=== PATIENT | female | born 1940 | race African-American/Black ===

== ENCOUNTER 2017-01-13 08:51 | Inpatient (IN) ==
[2017-01-13] MEDS ORDERED: KETOROLAC 30 MG/1 ML VIAL IV STA (09:18)
[2017-01-13] MEDS ORDERED: KETOROLAC 30 MG/1 ML VIAL ONE (09:23)
--- NOTE | 2017-01-13 09:32 | Emergency Department Note ---
Arrival - Arrival Chief Complaint: Fall Stated Complaint: fall ED Nursing Triage Note: C/O FALL AT SOME POINT LAST NIGHT, PT FOUND ON FLOOR AND DOES NOT REMEMBER HOW SHE GOT THERE. PT STATES SHE HAS NO COMPLAINTS, BUT DOES HAVE AN ABRASION ON RIGHT CHEEK. PT IS AWAKE AND ALERT X3. PT DID NOT TAKE HER HOME MEDS Mode of Arrival: Stretcher Limitations: No Limitations Source: Patient, Family Time Seen by Provider: 01/13/17 09:18 - History of Present Illness HPI Narrative: This 76-year-old black female presents several hours post fall with conflicting stories between family members as to how she was found. One group states she was found facedown by the bed after apparently rolling out of the bed while another groups states she was found on the couch. Most notable is the fact that they state over the last week she has been less ambulatory due to some mild ataxia. This follows her last visit to the ER 1 week ago for pedal edema. The patient is alert and oriented 3 with complaints of facial pain as well as right shoulder, bilateral hip, and left wrist pain. Currently she appears in no acute distress. Onset (ago): hour(s) (Patient presents 5-8 hours post incident) Date of Last Menstrual Period: HYST Allergies/Adverse Reactions: Allergies Allergy/AdvReac Type Severity Reaction Status Date / Time No Known Allergies Allergy Unverified 12/29/16 13:56 Home Medications: Home Medications Medication Instructions Recorded Confirmed Type Aspirin EC Tab 81 mg PO QAM 01/13/17 01/13/17 History Bisoprol/Hydrochlorothiazide 1 each PO QAM 01/13/17 01/13/17 History [Bisoprolol-Hctz 10-6.25 mg Tab] Canagliflozin [Invokana] 300 mg PO QAM 01/13/17 01/13/17 History Cholecalciferol (Vitamin D3) 2,000 unit PO QAM 01/13/17 01/13/17 History [Vitamin D3] Ferrous Sulfate Tab [Feosol 325 mg PO QAM 01/13/17 01/13/17 History Original Tab] Furosemide Tab [Lasix Tab] 40 mg PO QAM 01/13/17 01/13/17 History Insulin Glargine [Lantus] 66 units SUBCUT BEDTIME 01/13/17 01/13/17 History Losartan Potassium [Losartan 100 mg PO QAM 01/13/17 01/13/17 History Potassium] Lovastatin 40 mg PO BEDTIME 01/13/17 01/13/17 History Potassium Chloride Cap/Tab [K Dur] 20 meq PO QAM 01/13/17 01/13/17 History cloNIDine HCl [Clonidine HCl] 0.2 mg PO BID 01/13/17 01/13/17 History glipiZIDE [Glipizide] 10 mg PO BID 01/13/17 01/13/17 History hydrALAZINE TAB [Apresoline Tab] 100 mg PO BID 01/13/17 01/13/17 History sitaGLIPtin [Januvia] 100 mg PO QAM 01/13/17 01/13/17 History Review of System - Review of System 12 point system: reviewed and no additional remarkable complaints except as stated - Review of System Constitutional: Present: as per HPI Musculoskeletal: Present: as per HPI Neurological: Present: as per HPI Medical,Surgical,& Family Hx - Medical History Cardio: History of: CHF, Hypertension Endocrine: History of: Diabetes Mellitus (IDDM) - Family History Family History: Reports;: Family Diabetes, Family Stroke - Social History Smoking Status: Never smoker Frequency of Alcohol Use: None Type of Drug Use: None Exam Physical Examination: GENERAL: Elderly black female in no acute distress. HEENT: Normocephalic. Abrasion right face with tender right orbits without ecchymosis but mild swelling. Moist mucous membranes. EOMI. PERRLA. ENT nontender nose NECK: Supple. No adenopathy. CARDIAC: Regular. No murmurs. Heart rate 83 CHEST: Clear to auscultation. No respiratory distress. O2 sat 100% ABDOMEN: Soft. Nontender. Active bowel sounds. EXTREMITIES: No trauma. Normal ROM with pain of the right shoulder, left wrist , and hips. No pedal edema. SKIN: No diaphoresis. No rash. NEURO: Alert. Oriented 3, motor, sensory, vibratory intact. No focal deficits. Vital Signs: Vital Signs Temperature 96.5 F L 01/13/17 09:04 Pulse Rate 67 01/13/17 10:54 Respiratory Rate 15 01/13/17 10:54 Blood Pressure 191/102 01/13/17 09:04 O2 Sat by Pulse Oximetry 96 01/13/17 10:54 Course - Reevaluation(s) Reevaluation #1: Discussed with family the need for hospitalization - Consultations Consultation #1: Discussed with hospitalist service who will admit for further evaluation treatment. Results - Labs CBC & BMP: 01/13/17 09:36 01/13/17 09:36 Labs: I reviewed the lab and noted the elevated white blood cell count, low potassium , elevated BUN and creatinine. - Impressions EKG: Sinus rhythm at 72 with left axis deviation normal NH interval with intraventricular conduction delay. 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 Cerebral atrophy and microvascular ischemia noted, no acute injury noted.), X-ray: image reviewed by me, report reviewed by me (Pelvis, left wrist, right shoulder: No evidence of acute fracture.) Disposition Clinical Impression: Acute renal insufficiency, Hypoglycemia, Hyperkalemia, Multiple contusions post fall Case discussed with: patient, patient's family Disposition: Still a Patient Condition: Guarded Time of Disposition: 11:00
[2017-01-13 09:52] LABS: Basophils % 0.2 % (0.0-0.8); Hematocrit 44.8 VOL% (35.7-47.0); Hemoglobin 13.8 GM/DL (12.0-16.0); Immature Granulocytes % 0.6 %; Immature Granulocytes Absolute 0.12 #; Lymphocytes # 1.9 10*3/uL (1.4-4.0); Mean Corpuscular HGB Conc 30.8 GM/DL (32-36); Mean Corpuscular Hemoglobin 27 PG (27-34); Mean Corpuscular Volume 86.3 FL (87-102); Mean Platelet Volume 9.9 FL (9.6-12.0); Monocytes # 0.9 10*3/uL (0.11-0.8); Neutrophils # 15.7 10*3/uL (1.4-7.4); Neutrophils % 84.2 % (38.7-73.9); Platelet Count 329 T/CUMM (130-400); Red Blood Count 5.19 MC/CUMM (3.8-5.5); Red Cell Distribution Width 14.3 % (9.3-17.3); White Blood Count 18.7 T/CUMM (4-12)
[2017-01-13 10:03] LABS: INR 1.1; Partial Thromboplastin Time 32.7 SECS (0-40)
--- NOTE | 2017-01-13 10:13 | XRay Report ---
Exam: XR wrist 3V LT, XR shoulder 2V RT, XR pelvis AP 1 view, XR chest 1V portable Indication: Trauma, chest pain, pelvic pain, right shoulder and left wrist pain Comparison study: None Findings: Cardiac silhouette is mildly enlarged. Mediastinal contours are within normal limits. Suggestion of underlying interstitial prominence may represent scarring changes. There is no focal consolidation, pneumothorax or pleural effusion identified. Right shoulder joint is intact. There is no evidence of glenohumeral joint dislocation. There is no acute fracture identified. Moderate degenerative changes of acromioclavicular joint are noted. Osseous pelvis is intact. There is no evidence of acute fracture or hip dislocation. Distal radius and ulna appear within normal limits. There is no evidence of fracture or dislocation. Mild soft tissue swelling is suggested dorsally. Impression: No acute cardiopulmonary process. No acute fracture within the pelvis, right shoulder or left wrist PROCEDURE INTERPRETED AT [facility] DEPARTMENT OF RADIOLOGY Final Report Signed by: Chaparro Valle
--- NOTE | 2017-01-13 10:22 | CT Report ---
CT head/brain wo con INDICATION: Trauma, head injury Headache The total DLP is 1525 mGy*cm. COMPARISON: Noncontrast CT head dated 09/30/12 MRI brain 11/05/2012 Technique: Serial axial tomographic images of the brain were obtained without the use of intravenous contrast. Dose reduction: This CT exam was performed using one or more of the following dose reduction techniques: Automated exposure control, automated adjustment of the mA and/or KV according to patient size, or use of iterative reconstruction technique. Findings: Remote medial and lateral right frontal lobe infarcts are noted with encephalomalacic changes. Postsurgical changes are noted with findings most compatible with interval resection of the sellar soft tissue lesion seen previously. No definite residual soft tissue mass is evident within the sella or suprasellar cistern on this noncontrast study. Moderate generalized atrophy is noted with mild prominence of the sulci and cortical volume loss. Periventricular white matter hypodensity changes are noted bilaterally which do not demonstrate mass effect and are nonspecific but favored to represent sequela of chronic microvascular ischemia. There is no evidence of vascular territory infarct or acute intracranial hemorrhage. The giles-white matter differentiation is generally maintained. There is no hydrocephalus. The basilar cisterns are patent. The visualized paranasal sinuses, mastoid air cells and middle ear cavities are predominantly clear. The included orbits and their contents appear within normal limits. The visualized osseous structures and overlying soft tissues of the skull and face demonstrate no acute abnormality. IMPRESSION: No acute intracranial hemorrhage or infarction. Interval resection of the mass within the sella turcica with expected postsurgical changes. Evaluation for residual/recurrent disease is severely limited given noncontrast protocol. Essentially stable findings of chronic atrophy and sequela of chronic microvascular ischemia as well as remote right frontal lobe infarcts. PROCEDURE INTERPRETED AT [facility] DEPARTMENT OF RADIOLOGY Final Report Signed by: Chaparro Valle
[2017-01-13 10:25] LABS: Alanine Aminotransferase 36 U/L (13-56); Albumin 3.7 G/DL (3.4-5.0); Alkaline Phosphatase 79 U/L (45-117); Aspartate Amino Transferase 44 U/L (0-37); Bilirubin,Total < 0.39 MG/DL (0.2-1.0); Blood Urea Nitrogen 110 MG/DL (7-18); CKMB % 3.5 %; Calcium 10.4 MG/DL (8.5-10.1); Osmolality,Calculated 304.8 MOS/KG (273-304); Sodium 137 MMOL/L (136-145); Troponin I Only 0.029 NG/ML (0.00-0.045)
--- NOTE | 2017-01-13 10:28 | CT Report ---
Indication: Fall, facial injury/pain Comparison: None available Technique: Multiple axial tomographic thin slice images were obtained of the facial bones without the use of IV contrast. Coronal and sagittal reformations were obtained. Total DLP: 525.7 Dose reduction: This CT exam was performed using one or more of the following dose reduction techniques: Automated exposure control, automated adjustment of the mA and/or KV according to patient size, or use of iterative reconstruction technique. Findings: The orbits and orbital contents are unremarkable. The visualized paranasal sinuses, mastoid air cells and middle ear cavities are clear. The inner ear structures appear within normal limits. The visualized brain parenchyma appears within normal limits. There is no acute facial fracture. Soft tissue swelling overlying the right periorbital region and right lateral forehead is noted. IMPRESSION: No CT evidence of acute osseous facial injury. Minimal right lateral periorbital/facial soft tissue swelling. PROCEDURE INTERPRETED AT [facility] DEPARTMENT OF RADIOLOGY Final Report Signed by: Chaparro Valle
[2017-01-13 10:31] LABS: Glucose 39 MG/DL (74-106); Potassium 6.8 MMOL/L (3.5-5.1)
[2017-01-13] MEDS ORDERED: DEXTROSE 50% 25 GM/50 ML VIAL IV ONE (10:32)
[2017-01-13] MEDS ORDERED: CALCIUM CHLORIDE 1,000 MG/10 ML SYRINGE IV STA (10:37)
[2017-01-13] MEDS ORDERED: ALBUTEROL NEB SOLN 5 MG/ML 20 ML/BOTTLE CONT NEB STA (10:37)
[2017-01-13] MEDS ORDERED: SODIUM CHLORIDE 0.9% 1,000 ML IV STA (10:37)
[2017-01-13] MEDS ORDERED: DEXTROSE 50% 25 GM/50 ML VIAL IV STA (10:37)
[2017-01-13] MEDS ORDERED: CALCIUM CHLORIDE 1,000 MG/10 ML SYRINGE IV ONE (10:50)
[2017-01-13 11:25] LABS: Apearance,Urine Slightly Hazy (Clear); Bacteria,Urine Occasional /HPF (Few); Bilirubin,Urine Negative (Negative); Blood, Urine Negative (Negative); Glucose,Urine (UA) 50 mg/dL (Negative); Hyaline Casts,Urine 4 /LPF (0-3); Ketones,Urine Negative (Negative); Mucus,Urine Occasional /LPF (Occasional); Nitrite,Urine Negative (Negative); Protein,Urine Negative; RBC,Urine 2 /HPF (0-4); Urine Color Yellow (Yellow); Urine Specific Gravity 1.013 (1.001-1.035); Urine Urobilinogen < 2.0 EU/DL (0.2-1.0)
--- NOTE | 2017-01-13 11:37 | EKG Report ---
Stationary ECG Study [facility] Test Date: 01/13/2017 10:59:17 AM Pat Name: NICOLE MCDONOUGH Department: Room: Gender: F Personal Lines Advisor: ERIKA : 1940 Requested by: Trae Pringle Order Number: [id number] Reading MD: BRENDA LOPEZ Intervals [place] Rate: 72 P: 62 AL: 190 QRS: -32 QRSD: 112 T: 74 QT: 385 QTc: 410 Interpretive Statements SINUS RHYTHM MARKED LEFT AXIS DEVIATION PATTERN CONSISTENT WITH PULMONARY DISEASE MODERATE INTRAVENTRICULAR CONDUCTION DELAY NONSPECIFIC T-WAVE ABNORMALITY Electronically Signed On 01-14-17 08:56:38 CDT by BRENDA LOPEZ [email or web address]
[2017-01-13 12:41] LABS: Barbiturates Screen,Urine Negative (Negative); Benzodiazepines Screen,Urine Negative (Negative); Cannabinoid Screen,Urine Negative (Negative); Opiate Screen,Urine Negative (Negative); Phencyclidine Screen,Urine Negative (Negative)
[2017-01-13] MEDS ORDERED: DEXTROSE 50% 25 GM/50 ML VIAL IV PRN (12:53)
[2017-01-13] MEDS ORDERED: GLUCAGON 1 MG VIAL IM PRN ×2 (12:53)
[2017-01-13] MEDS ORDERED: ZALEPLON 5 MG CAPSULE PO PRN (12:59)
[2017-01-13] MEDS ORDERED: ACETAMINOPHEN 325 MG TABLET PO PRN (12:59)
[2017-01-13] MEDS ORDERED: DOCUSATE SODIUM 100 MG CAPSULE PO PRN (12:59)
[2017-01-13] MEDS ORDERED: MORPHINE 2 MG/1 ML SYRINGE IV PRN (12:59)
[2017-01-13] MEDS ORDERED: ONDANSETRON 4 MG/2 ML VIAL IV PRN (12:59)
[2017-01-13] MEDS ORDERED: LACTULOSE 20 GM/30 ML UDCUP PO PRN (12:59)
--- NOTE | 2017-01-13 13:05 | Hospitalist History & Physical ---
Assessment and Plan (1) Acute kidney failure Status: Acute Assessment and plan: BUN 110 Cr 5.00. This has doubled since her last visit 2 weeks ago. We have started gentle IV hydration with NS. Avoid all nephrotoxic agents. Obtain a new renal US bilaterally. Consulted Dr. Moses Foote, nephrology. Current Visit: Yes (2) Hypertension Status: Acute Assessment and plan: BP 106-191/102-116. Continue Hydralazine. Add Metoprolol. Current Visit: Yes (3) Diabetes mellitus Status: Acute Assessment and plan: Holding all home meds. Initiating SSI with medium dose Lispro. Will add basal if necessary. Patient was hypoglycemic on admission. Current Visit: Yes (4) Hyperkalemia Status: Acute Assessment and plan: K 6.8. Patient was given IV calcium chloride and kayexalate in the ED. Repeat BMP. Current Visit: Yes (5) Hypoglycemia Status: Acute Assessment and plan: Blood glucose on admission 39. Patient given glucagon and D50 injection in ED. Repeat Accu-chek reads glucose of 130. Current Visit: Yes History of Present Illness Chief complaint: LISBETH/hyperkalemia/hypoglycemia History of present illness: Ms. Rendon is a 76 year old female with a past medical history significant for hypertension and diabetes mellitus presents to the ED s/p fall out bed with onset at approximately 7am. The patient was found by a family friend who assists with her daily medications this morning around 8am. The patient states she "doesn't know what happened, she just fell". On arrival at the ED, the patient was found to be hypoglycemic with serum glucose 39, hyperkalemic with K 6.8 and suffering from acute kidney injury with BUN 110 and Cr 5.00. The patient was noticeably distressed and shivering under several layers of clothes and blankets. The patient does not voice any knowledge of renal failure, however, hospital records from 12/29/2016 BUN and Cr were previously 64 and 2.5, respectively. Patient only complains of headache and being extremely cold. The patient was given Kayexelate, Calcium Chloride, Glucagon, and D50 in the ED. She has been admitted to the hospitalist service and transferred to the ICU for further evaluation and treatment. The patient is a full code. Case has been discussed with Dr. Gallo, admitting physician. Home Medications Medication Instructions Recorded Confirmed Type Aspirin EC Tab 81 mg PO QAM 01/13/17 01/13/17 History Bisoprol/Hydrochlorothiazide 1 each PO QAM 01/13/17 01/13/17 History [Bisoprolol-Hctz 10-6.25 mg Tab] Canagliflozin [Invokana] 300 mg PO QAM 01/13/17 01/13/17 History Cholecalciferol (Vitamin D3) 2,000 unit PO QAM 01/13/17 01/13/17 History [Vitamin D3] Ferrous Sulfate Tab [Feosol 325 mg PO QAM 01/13/17 01/13/17 History Original Tab] Furosemide Tab [Lasix Tab] 40 mg PO QAM 01/13/17 01/13/17 History Insulin Glargine [Lantus] 66 units SUBCUT BEDTIME 01/13/17 01/13/17 History Losartan Potassium [Losartan 100 mg PO QAM 01/13/17 01/13/17 History Potassium] Lovastatin 40 mg PO BEDTIME 01/13/17 01/13/17 History Potassium Chloride Cap/Tab [K Dur] 20 meq PO QAM 01/13/17 01/13/17 History cloNIDine HCl [Clonidine HCl] 0.2 mg PO BID 01/13/17 01/13/17 History glipiZIDE [Glipizide] 10 mg PO BID 01/13/17 01/13/17 History hydrALAZINE TAB [Apresoline Tab] 100 mg PO BID 01/13/17 01/13/17 History sitaGLIPtin [Januvia] 100 mg PO QAM 01/13/17 01/13/17 History Allergies Allergy/AdvReac Type Severity Reaction Status Date / Time No Known Allergies Allergy Unverified 12/29/16 13:56 Medical,Surgical,& Family Hx - Medical History Cardio: History of: CHF, Hypertension Endocrine: History of: Diabetes Mellitus (IDDM) - Family History Family History: Reports;: Family Diabetes, Family Stroke - Social History Smoking Status: Never smoker Frequency of Alcohol Use: None Type of Drug Use: None Marital Status: Single Lives With:: Alone Functional capacity: independent ambulation - Constitutional Constitutional: Present: chills, fatigue, headache(s), weakness. Absent: night sweats - EENT Eyes: Absent: blurry vision, loss of vision Ears: Absent: decreased hearing, ear pain - Cardiovascular Cardiovascular: Present: dyspnea. Absent: chest pain at rest, chest pain with activity, edema, lightheadedness - Respiratory Respiratory: Absent: cough, hemoptysis, wheezing - Gastrointestinal Gastrointestinal: Absent: abdominal pain, constipation, nausea, vomiting - Genitourinary Genitourinary: Absent: difficulty urinating, dysuria - Musculoskeletal Musculoskeletal: Absent: arthralgias, back pain - Neurological Neurological: Absent: confusion, dizziness, syncope - Psychiatric Psychiatric: Absent: anxiety, depression - Endocrine Endocrine: Present: cold intolerance, fatigue, heat intolerance - Hematologic/Lymphatic Hematologic/Lymphatic: Present: easy bleeding. Absent: easy bruising Exam - Constitutional Vitals: Period Temp Pulse Resp BP Sys/Cullen Pulse Ox Last 24 Hr 97.8 F 67-99 15-18 160/116 96-98 Exam: General appearance: morbidly obese, moderate distress, shivering - Head Head exam: Present: normocephalic, abrasions to right upper eyelid and cheek - Eye Eye exam: Present: EOMI. Absent: conjunctival injection, nystagmus Pupils: Present: ALFREDA, normal accommodation - ENT ENT exam: Present: normal exam, normal external ear exam - Neck Neck exam: Present: normal inspection. Absent: lymphadenopathy, tenderness, thyromegaly - Respiratory Respiratory exam: Present: clear to auscultation bilaterally. Absent: rales, rhonchi, wheezes - Cardiovascular Cardiovascular exam: Present: regular rate and rhythm. Absent: carotid bruit, gallop, rubs - GI/Abdominal GI/Abdominal exam: Present: normal bowel sounds. Absent: ascites, distended, mass - Extremities Exam Extremities exam: Present: normal inspection, normal capillary refill. Absent: edema - Back Exam Back exam: Absent: CVA tenderness (L), CVA tenderness (R) - Neurological Exam Neurological exam: Present: alert, oriented X3 - Psychiatric Psychiatric exam: Present: normal affect, normal mood - Skin Skin exam: Present: normal color, warm, dry Results - Labs CBC & BMP: 01/13/17 09:36 01/13/17 09:36
[2017-01-13 13:35] LABS: Risk Ratio 3.63; Thyroid Stimulating Hormone 1.5 uIU/ml (0.358-3.74); VLDL CHOLESTEROL 29.2 MG/DL
[2017-01-13] MEDS: SODIUM CHLORIDE 0.9% 1,000 ML IV SCH (13:53)
[2017-01-13] MEDS ORDERED: SODIUM POLYSTYRENE SULFATE 15 GM/60 ML BOTTLE PO ONE (13:57)
[2017-01-13] MEDS ORDERED: hydrALAZINE 20 MG/1 ML VIAL IV PRN (14:00)
[2017-01-13] MEDS: FERROUS SULFATE 325 MG TABLET PO SCH ×2 (16:00→20:51)
--- NOTE | 2017-01-13 17:40 | Ultrasound Report ---
US renal Bilateral Indication: Acute renal failure. Comparison: Prior renal ultrasound dated 05/24/2016. Technique: Multiple longitudinal and transverse real-time sonographic images of the kidneys were obtained. Findings: The right kidney measures 8.9 x 4.4 x 2.4 cm, and the left kidney measures 8.0 x 4.9 x 3.6 cm. There is no evidence of nephrolithiasis or abnormal perinephric fluid collections. Renal cortical echogenicity is increased and thickness are within normal limits. There is no hydronephrosis. Within the right kidney, there is an anechoic lesion measuring up to 2.5 cm, most compatible with a simple cyst. Punctate anechoic lesion within the left kidney measures 0.9 cm maximum dimension and is also most compatible with a simple cyst. There is no evidence of surrounding ascites. Ultrasound images were captured and stored. IMPRESSION: Findings suggestive of chronic medical renal disease. Small bilateral renal cysts are noted. No hydronephrosis. PROCEDURE INTERPRETED AT [facility] DEPARTMENT OF RADIOLOGY Final Report Signed by: Chaparro Valle
[2017-01-13] MEDS: INSULIN LISPRO 100 UNIT/ML SUBCUT SCH ×2 (18:57→20:39)
[2017-01-13 19:55] LABS: Apearance,Urine Slightly Hazy (Clear); Bilirubin,Urine Negative (Negative); Blood, Urine Negative (Negative); Glucose,Urine (UA) 150 mg/dL (Negative); Hyaline Casts,Urine 8 /LPF (0-3); Ketones,Urine Negative (Negative); Mucus,Urine Occasional /LPF (Occasional); Nitrite,Urine Negative (Negative); Protein,Urine Negative; RBC,Urine 4 /HPF (0-4); Urine Color Yellow (Yellow); Urine Specific Gravity 1.014 (1.001-1.035); Urine Urobilinogen < 2.0 EU/DL (0.2-1.0); WBC,Urine 3 /HPF (0-6)
[2017-01-13] MEDS: METOPROLOL TARTRATE 25 MG TABLET PO SCH (20:51)
[2017-01-13] MEDS: ATORVASTATIN 40 MG TABLET PO SCH (20:51)
[2017-01-14] MEDS: SODIUM CHLORIDE 0.9% 1,000 ML IV SCH ×2 (00:10→11:39)
[2017-01-14] MEDS ORDERED: ALUMINUM/MAGNES/SIMETH MAX STR 30 ML UDCUP PO PRN (00:33)
[2017-01-14 04:56] LABS: Basophils % 0.2 % (0.0-0.8); Eosinophils # 0.1 10*3/uL (0.0-0.87); Eosinophils % 0.6 % (0.00-10.9); Hemoglobin 10.2 GM/DL (12.0-16.0); Immature Granulocytes % 0.4 %; Immature Granulocytes Absolute 0.03 #; Lymphocytes # 2.5 10*3/uL (1.4-4.0); Lymphocytes % 29.6 % (21.3-54.2); Mean Corpuscular HGB Conc 30.9 GM/DL (32-36); Mean Corpuscular Hemoglobin 27 PG (27-34); Mean Corpuscular Volume 85.7 FL (87-102); Mean Platelet Volume 10.5 FL (9.6-12.0); Monocytes # 0.9 10*3/uL (0.11-0.8); Neutrophils % 59.2 % (38.7-73.9); Platelet Count 240 T/CUMM (130-400); Red Blood Count 3.85 MC/CUMM (3.8-5.5); Red Cell Distribution Width 14.6 % (9.3-17.3); White Blood Count 8.5 T/CUMM (4-12)
[2017-01-14 05:24] LABS: Calcium 9.1 MG/DL (8.5-10.1)
[2017-01-14 05:32] LABS: Potassium 6.3 MMOL/L (3.5-5.1)
[2017-01-14] MEDS ORDERED: SODIUM POLYSTYRENE SULFATE 15 GM/60 ML BOTTLE PO ONE (06:08)
[2017-01-14] MEDS: INSULIN LISPRO 100 UNIT/ML SUBCUT SCH ×4 (09:19→20:40)
[2017-01-14] MEDS ORDERED: DEXTROSE 5% NACL 0.9% 1,000 ML IV SCH (09:30)
--- NOTE | 2017-01-14 10:36 | Hospitalist Progress Note ---
Assessment and Plan (1) Acute on chronic kidney failure Status: Acute Assessment and plan: 1)LISBETH on CKD- her last creatinine was 2.5 2 weeks ago. She is receiving IVF hydration and her losartan was stopped. Renal to see today , US done showed medical renal disease. UOP increasing, creatinine coming down. 2)hyperkalemia- due ot the LISBETH and lisinopril- coming down with kayexalate- dose repeated this morning and noon recheck scheduled. No EKG changes. 3)HTN- not high at this time- home meds except losartan and diuretics continued. 4)hypoglycemia- she is on glipizide as an outpatient and it will likely be 48 hours before it is cleared given her current renal function. Also holding her other usual insulin. begin D5 NS and change SSI to begin at 250. Adjust as her glucose rises. 5)DM- hgba1c pending. Current Visit: Yes (2) Fall Status: Acute Current Visit: Yes (3) Hypertension Status: Acute Current Visit: Yes (4) Diabetes mellitus Status: Acute Current Visit: Yes (5) Hyperkalemia Status: Acute Current Visit: Yes (6) Hypoglycemia Status: Acute Current Visit: Yes Hospitalist: Subjective Interval history: Mrs Rendon was stable overnight and has her potassium responded to the kayexalate. She has no complaints. She fell at home yesterday and has scratches on her face but no other injuries, and she is interested in PT and OT and possible swing bed placement. Exam - Constitutional Vitals: Period Temp Pulse Resp BP Sys/Cullen Pulse Ox Last 24 Hr 97.2 F-98.9 F 67-99 15-24 80-173/39-151 95-100 General appearance: no acute distress, morbidly obese - Head Head exam: Present: normocephalic. Absent: atraumatic (scratches on her right cheek) - Eye Eye exam: Present: EOMI Pupils: Present: ALFREDA - ENT ENT exam: Present: normal external ear exam - Respiratory Respiratory exam: Present: clear to auscultation bilaterally - Cardiovascular Cardiovascular exam: Present: regular rate and rhythm - GI/Abdominal GI/Abdominal exam: Present: normal bowel sounds, soft. Absent: tenderness - Extremities Exam Extremities exam: Absent: edema - Neurological Exam Neurological exam: Present: alert, oriented X3 - Skin Skin exam: Present: warm, dry Results - Labs CBC & BMP: 01/14/17 04:10 01/14/17 04:10 Lab Results: I have reviewed the past 24 hour labs
[2017-01-14] MEDS: FERROUS SULFATE 325 MG TABLET PO SCH ×2 (11:38→11:51)
[2017-01-14] MEDS: CHOLECALCIFEROL 1,000 UNIT TABLET PO SCH (11:51)
[2017-01-14] MEDS: PANTOPRAZOLE 40 MG TABLET PO SCH (11:51)
[2017-01-14] MEDS: ASPIRIN EC 81 MG TABLET PO SCH (11:51)
[2017-01-14] MEDS: METOPROLOL TARTRATE 25 MG TABLET PO SCH ×2 (11:52→20:40)
--- NOTE | 2017-01-14 11:59 | Nephrology Consult Note ---
History of Present Illness Chief complaint: Acute on Chronic Renal Failure History of present illness: Ms. Rendon is a 76 year old female whom we are asked to see with acute superimposed on chronic renal impairment. She began lisinopril recently and had a creatinine of 2-1/2 at that time. She presented with a creatinine of 5 and a potassium of 6.8. She also has a metabolic acidosis. She came to the emergency room because of weakness and falling. She gives a history of having a previous strokes but no heart attack. Her gait is not especially stable according to family members but was particularly worse on Saturday. On exam she is in no distress able to give a good history she is lying flat and is having no shortness of breath. She has a Rhodes catheter in place and is now making adequate amounts of urine. Her serum creatinine is fallen below 5 today and her potassium is falling since yesterday. She has received Kayexalate since being here. Impression chronic renal impairment #2 acute renal failure superimposed on chronic renal failure likely due to JUANY inhibitor inhibitor. Hyperkalemia likely due to the JUANY inhibitor. Our suggestions I would add sodium bicarb to her IV fluid is not available so will use sodium acetate. #2 she should continue to improve and return her renal function to baseline. Home Medications Medication Instructions Recorded Confirmed Type Aspirin EC Tab 81 mg PO QAM 01/13/17 01/13/17 History Bisoprol/Hydrochlorothiazide 1 each PO QAM 01/13/17 01/13/17 History [Bisoprolol-Hctz 10-6.25 mg Tab] Canagliflozin [Invokana] 300 mg PO QAM 01/13/17 01/13/17 History Cholecalciferol (Vitamin D3) 2,000 unit PO QAM 01/13/17 01/13/17 History [Vitamin D3] Ferrous Sulfate Tab [Feosol 325 mg PO QAM 01/13/17 01/13/17 History Original Tab] Furosemide Tab [Lasix Tab] 40 mg PO QAM 01/13/17 01/13/17 History Insulin Glargine [Lantus] 66 units SUBCUT BEDTIME 01/13/17 01/13/17 History Losartan Potassium [Losartan 100 mg PO QAM 01/13/17 01/13/17 History Potassium] Lovastatin 40 mg PO BEDTIME 01/13/17 01/13/17 History Potassium Chloride Cap/Tab [K Dur] 20 meq PO QAM 01/13/17 01/13/17 History cloNIDine HCl [Clonidine HCl] 0.2 mg PO BID 01/13/17 01/13/17 History glipiZIDE [Glipizide] 10 mg PO BID 01/13/17 01/13/17 History hydrALAZINE TAB [Apresoline Tab] 100 mg PO BID 01/13/17 01/13/17 History sitaGLIPtin [Januvia] 100 mg PO QAM 01/13/17 01/13/17 History Allergies Allergy/AdvReac Type Severity Reaction Status Date / Time No Known Allergies Allergy Unverified 12/29/16 13:56 Medical,Surgical,& Family Hx - Medical History Cardio: History of: CHF, Hypertension Endocrine: History of: Diabetes Mellitus (IDDM) - Family History Family History: Reports;: Family Diabetes, Family Stroke - Social History Smoking Status: Never smoker Frequency of Alcohol Use: None Type of Drug Use: None Review of Systems 12 point system: reviewed and no additional remarkable complaints except as stated Exam - Vital Signs Vital signs: Period Temp Pulse Resp BP Sys/Cullen Pulse Ox Last 24 Hr 97.2 F-98.9 F 68-99 16-24 80-173/39-151 95-100 - General Appearance General appearance: well-developed, well-nourished, appears started age Neck: no JVD, no thyromegaly, no carotid bruit, supple Respiratory: no kyphosis, no scoliosis Cardiology: no murmurs, no rub, no gallops, no edema, regular rate, regular rhythm, normal S1, normal S2 Gastrointestinal: normoactive bowel sounds, no tenderness, no guarding, no organomegaly Integumentary: no rash, warm and dry Neurologic: no focal deficit, no asterixis, alert and oriented x3, reflexes 2+ and symmetric, gait normal, strength 5/5 Musculoskeletal: no deformities, no erythema, no cyanosis, no clubbing Psychiatric: mood/affect appropriate, cooperative Results - Labs CBC & BMP: 01/14/17 04:10 01/14/17 04:10 Assessment and Plan - Time spent with patient Time spent with patient: Greater than 30 minutes (1) Acute on chronic kidney failure Status: Acute Assessment and plan: Likely due to JUANY inhibitor Current Visit: Yes (2) Hyperkalemia Status: Acute Assessment and plan: due to JUANY inhibitor Current Visit: Yes (3) Diabetes mellitus Status: Acute Current Visit: Yes (4) Hypertension Status: Acute Assessment and plan: Hold JUANY inhibitor Current Visit: Yes
[2017-01-14] MEDS: SODIUM ACETATE 50 MEQ in DEXTROSE 5% NACL 0.45% 1,000 ML IV SCH (14:28)
[2017-01-14] MEDS: ATORVASTATIN 40 MG TABLET PO SCH (20:40)
[2017-01-14] MEDS: cloNIDine 0.1 MG TABLET PO SCH (20:40)
[2017-01-15] MEDS: SODIUM ACETATE 50 MEQ in DEXTROSE 5% NACL 0.45% 1,000 ML IV SCH ×2 (00:26→10:45)
[2017-01-15 05:13] LABS: Basophils % 0.3 % (0.0-0.8); Eosinophils # 0.3 10*3/uL (0.0-0.87); Eosinophils % 3.7 % (0.00-10.9); Hematocrit 29.3 VOL% (35.7-47.0); Immature Granulocytes % 0.5 %; Immature Granulocytes Absolute 0.04 #; Lymphocytes # 2.4 10*3/uL (1.4-4.0); Lymphocytes % 32.9 % (21.3-54.2); Mean Corpuscular HGB Conc 30.7 GM/DL (32-36); Mean Corpuscular Hemoglobin 27 PG (27-34); Mean Corpuscular Volume 86.7 FL (87-102); Mean Platelet Volume 10.2 FL (9.6-12.0); Monocytes # 0.6 10*3/uL (0.11-0.8); Monocytes % 8.7 % (1.7-12.7); Neutrophils % 53.9 % (38.7-73.9); Platelet Count 178 T/CUMM (130-400); Red Blood Count 3.38 MC/CUMM (3.8-5.5); Red Cell Distribution Width 14.6 % (9.3-17.3); White Blood Count 7.3 T/CUMM (4-12)
[2017-01-15 05:43] LABS: Calcium 8.6 MG/DL (8.5-10.1); Potassium 5.3 MMOL/L (3.5-5.1)
--- NOTE | 2017-01-15 08:41 | Nephrology Progress Note ---
Nephrology - PN: Subj Interval history: Ms. Rendon is seen in follow-up of her acute renal failure on chronic renal failure and hyperkalemia. She is improved her potassium is down to 5.3. Creatinine down to 3.1. She is receiving sodium acetate in her IV and her bicarb is risen to 19. We will continue that for now but she should be able to stop it tomorrow. She is currently off JUANY and ARBs and I think we should stay off of those. She has no edema and is not short of breath. Exam (PN)-Nephrology - Vital Signs Vital signs: Period Temp Pulse Resp BP Sys/Cullen Pulse Ox Last 24 Hr 97.4 F-99.3 F 68-88 16-27 100-144/46-73 93-100 - Lab 01/15/17 04:23 01/15/17 04:23 Most recent lab results Calcium 8.6 MG/DL (8.5-10.1) 01/15/17 04:23 Assessment and Plan (1) Acute on chronic kidney failure Status: Acute Assessment and plan: Likely due to JUANY inhibitor Current Visit: Yes (2) Hyperkalemia Status: Acute Assessment and plan: due to JUANY inhibitor Current Visit: Yes (3) Diabetes mellitus Status: Acute Current Visit: Yes (4) Hypertension Status: Acute Assessment and plan: Hold JUANY inhibitor Current Visit: Yes
[2017-01-15] MEDS: PANTOPRAZOLE 40 MG TABLET PO SCH (09:06)
[2017-01-15] MEDS: METOPROLOL TARTRATE 25 MG TABLET PO SCH ×2 (09:06→21:53)
[2017-01-15] MEDS: cloNIDine 0.1 MG TABLET PO SCH ×2 (09:07→21:52)
[2017-01-15] MEDS: INSULIN LISPRO 100 UNIT/ML SUBCUT SCH ×4 (09:07→21:55)
[2017-01-15] MEDS: FERROUS SULFATE 325 MG TABLET PO SCH (09:07)
[2017-01-15] MEDS: CHOLECALCIFEROL 1,000 UNIT TABLET PO SCH (09:07)
[2017-01-15] MEDS: ASPIRIN EC 81 MG TABLET PO SCH (09:07)
--- NOTE | 2017-01-15 09:17 | Hospitalist Progress Note ---
Assessment and Plan (1) Acute on chronic kidney failure Status: Acute Assessment and plan: 1)LISBETH on CKD- her last creatinine was 2.5 2 weeks ago. Today creatinine down to 3.1. continue IVF hydration and her losartan was stopped. US done showed medical renal disease. 2)hyperkalemia- due to the LISBETH and losartan- came down with kayexalate 3)HTN- not high at this time- home meds changed: losartan hydralazine and diuretics held, clonidine and metoprolol dose halved. 4)hypoglycemia- she is on glipizide as an outpatient and it will likely be 48 hours before it is cleared given her current renal function. Also holding her other usual insulin. continue D5 NS until glucose over 250 then stop the D5. SSI changed to begin at 250 for now. Adjust as her glucose rises. 5)DM- hgba1c 8.3 Current Visit: Yes (2) Fall Status: Acute Current Visit: Yes (3) Hypertension Status: Acute Current Visit: Yes (4) Diabetes mellitus Status: Acute Current Visit: Yes (5) Hyperkalemia Status: Acute Current Visit: Yes (6) Hypoglycemia Status: Acute Current Visit: Yes Hospitalist: Subjective Interval history: Mrs Rendon is feeling good this morning. She is not short of breath and has a good appetite. She did not have any more low blood sugars overnight- she is on D5. Exam - Constitutional Vitals: Period Temp Pulse Resp BP Sys/Cullen Pulse Ox Last 24 Hr 97.4 F-99.3 F 68-88 16-27 100-144/46-73 93-100 General appearance: no acute distress, over weight - Head Head exam: Present: normocephalic, abrasion (right cheek, healing) - Eye Eye exam: Present: EOMI. Absent: scleral icterus - Respiratory Respiratory exam: Present: clear to auscultation bilaterally - Cardiovascular Cardiovascular exam: Present: regular rate and rhythm - GI/Abdominal GI/Abdominal exam: Present: normal bowel sounds, soft. Absent: tenderness - Extremities Exam Extremities exam: Absent: edema Results - Labs CBC & BMP: 01/15/17 04:23 01/15/17 04:23 Lab Results: I have reviewed the past 24 hour labs
[2017-01-15] MEDS: ATORVASTATIN 40 MG TABLET PO SCH (21:52)
[2017-01-15] MEDS: SODIUM CHLORIDE 0.9% 1,000 ML IV SCH (22:03)
[2017-01-16] MEDS: SODIUM ACETATE 50 MEQ in DEXTROSE 5% NACL 0.45% 1,000 ML IV SCH ×4 (01:42→09:11)
[2017-01-16] MEDS: INSULIN LISPRO 100 UNIT/ML SUBCUT SCH ×4 (07:52→20:53)
--- NOTE | 2017-01-16 08:34 | Nephrology Progress Note ---
Nephrology - PN: Subj Interval history: Ms. Rendon is seen in follow-up of her acute on chronic renal impairment. She is feeling well and is out of bed today. Her blood sugars have remained stable. Her chest is clear she has no edema. Will check lab tomorrow but I think she can slow her discontinue her IVs she is. She says she is eating well Exam (PN)-Nephrology - Vital Signs Vital signs: Period Temp Pulse Resp BP Sys/Cullen Pulse Ox Last 24 Hr 97.3 F-99.0 F 69-88 14-20 106-171/40-74 93-98 - Lab 01/15/17 04:23 01/15/17 04:23 Most recent lab results Calcium 8.6 MG/DL (8.5-10.1) 01/15/17 04:23 Assessment and Plan (1) Acute on chronic kidney failure Status: Acute Assessment and plan: Likely due to JUANY inhibitor Current Visit: Yes (2) Hyperkalemia Status: Acute Assessment and plan: due to JUANY inhibitor Current Visit: Yes (3) Diabetes mellitus Status: Acute Current Visit: Yes (4) Hypertension Status: Acute Assessment and plan: Hold JUANY inhibitor Current Visit: Yes
--- NOTE | 2017-01-16 09:02 | Hospitalist Progress Note ---
Assessment and Plan (1) Diabetes mellitus Status: Chronic Assessment and plan: Episode of hypoglycemia likely mediated by reduced insulin clearance due to renal disease and poor clearance of her oral hypoglycemic associated with acute fall in GFR. Current Visit: Yes Qualifiers: Diabetes mellitus type: type 2 (2) Acute on chronic kidney failure Status: Acute Assessment and plan: Strong volume component is suggested by initial BUN and creatinine ratio. This is likely mediated to the use of double diuretics, and Invokana. The hyperkalemia likely reflects in addition to the acidosis the effects of potassium supplementation and use of ARB. Current Visit: Yes Hospitalist: Subjective Interval history: 76-year-old female with chronic renal insufficiency. She is maintained on hydrochlorothiazide Lasix along with an ARB potassium supplementation and Invokana. Also for her diabetes she takes Lantus Januvia and glipizide. She sustained a fall and was found to have a marked increase in her creatinine and BUN from the baseline. There was an anion gap metabolic acidosis present. She was hyperkalemic with the acidosis. Subsequent to admission she demonstrated hypoglycemia and is continued on a D5 infusion with variable capillary blood glucose readings but no recurrent hypoglycemia. Her vital signs are stable overnight with capillary blood glucose of 121 this morning. Exam - Constitutional Vitals: Period Temp Pulse Resp BP Sys/Cullen Pulse Ox Last 24 Hr 97.3 F-99.0 F 69-88 14-20 106-171/40-74 93-98 General appearance: over weight - Respiratory Respiratory exam: Present: clear to auscultation bilaterally. Absent: rales, rhonchi, wheezes - Cardiovascular Cardiovascular exam: Present: regular rate and rhythm - GI/Abdominal GI/Abdominal exam: Present: normal bowel sounds. Absent: tenderness - Extremities Exam Extremities exam: Absent: edema - Neurological Exam Neurological exam: Present: alert, oriented X3 Results - Labs CBC & BMP: 01/15/17 04:23 01/15/17 04:23
[2017-01-16] MEDS: METOPROLOL TARTRATE 25 MG TABLET PO SCH ×2 (09:04→20:50)
[2017-01-16] MEDS: ASPIRIN EC 81 MG TABLET PO SCH (09:05)
[2017-01-16] MEDS: PANTOPRAZOLE 40 MG TABLET PO SCH (09:05)
[2017-01-16] MEDS: FERROUS SULFATE 325 MG TABLET PO SCH (09:05)
[2017-01-16] MEDS: CHOLECALCIFEROL 1,000 UNIT TABLET PO SCH (09:05)
[2017-01-16] MEDS: cloNIDine 0.1 MG TABLET PO SCH ×2 (09:06→20:51)
[2017-01-16] MEDS: SODIUM CHLORIDE 0.9% 1,000 ML IV SCH ×2 (09:13→18:43)
[2017-01-16] MEDS: ATORVASTATIN 40 MG TABLET PO SCH (20:50)
[2017-01-17 05:16] LABS: Calcium 8.9 MG/DL (8.5-10.1); Osmolality,Calculated 292.3 MOS/KG (273-304); Potassium 4.9 MMOL/L (3.5-5.1)
[2017-01-17] MEDS: SODIUM CHLORIDE 0.9% 1,000 ML IV SCH (05:25)
--- NOTE | 2017-01-17 06:59 | Hospitalist Progress Note ---
Assessment and Plan (1) Diabetes mellitus Status: Chronic Assessment and plan: Episode of hypoglycemia likely mediated by reduced insulin clearance due to renal disease and poor clearance of her oral hypoglycemic associated with acute fall in GFR. Current Visit: Yes Qualifiers: Diabetes mellitus type: type 2 (2) Acute on chronic kidney failure Status: Acute Assessment and plan: Strong volume component is suggested by initial BUN and creatinine ratio. This is likely mediated to the use of double diuretics, and Invokana. The hyperkalemia likely reflects in addition to the acidosis the effects of potassium supplementation and use of ARB. Current Visit: Yes Hospitalist: Subjective Interval history: 76-year-old female with chronic underlying renal insufficiency who presented with what was likely a severe case of volume contraction reflective of the use of double diuretics in an Invokana. In addition on an JUANY inhibitor creatinine and potassium both increased with development of renal tubular acidosis. Finally poor clearance of her oral hypoglycemic agents led to in-hospital hypoglycemia. She is progressed with IV fluid support. She has been off glucose for 24 hours with a stable capillary blood glucose level and. Her electrolytes this morning demonstrate a creatinine of 2.1 which is very close to her baseline. Vital signs are stable overnight and she feels well. Exam - Constitutional Vitals: Period Temp Pulse Resp BP Sys/Cullen Pulse Ox Last 24 Hr 97.4 F-98 F 65-85 18-20 147-187/66-81 94-96 General appearance: over weight - Respiratory Respiratory exam: Present: clear to auscultation bilaterally. Absent: rales, rhonchi, wheezes - Cardiovascular Cardiovascular exam: Present: regular rate and rhythm - GI/Abdominal GI/Abdominal exam: Present: normal bowel sounds. Absent: tenderness - Extremities Exam Extremities exam: Absent: edema - Neurological Exam Neurological exam: Present: alert, oriented X3 Results - Labs CBC & BMP: 01/15/17 04:23 01/17/17 03:48
[2017-01-17] MEDS: INSULIN LISPRO 100 UNIT/ML SUBCUT SCH ×2 (07:56→11:41)
--- NOTE | 2017-01-17 08:40 | Nephrology Progress Note ---
Nephrology - PN: Subj Interval history: Ms. Rendon is seen in follow-up of her acute superimposed on chronic renal impairment she is much improved. Her creatinine is now down to his usual baseline of 2.1. Her acidosis is resolved with a measured bicarb of 21. Chest is clear and she is eating well. She has no significant edema. I think she can probably do without her IV fluids and is likely able to be discharged. We will sign off for now. Thank you Exam (PN)-Nephrology - Vital Signs Vital signs: Period Temp Pulse Resp BP Sys/Cullen Pulse Ox Last 24 Hr 97.4 F-98 F 65-85 18-20 147-187/66-81 94-96 - Lab 01/15/17 04:23 01/17/17 03:48 Most recent lab results Calcium 8.9 MG/DL (8.5-10.1) 01/17/17 03:48 Assessment and Plan (1) Acute on chronic kidney failure Status: Acute Assessment and plan: Likely due to JUANY inhibitor Current Visit: Yes (2) Hyperkalemia Status: Acute Assessment and plan: due to JUANY inhibitor Current Visit: Yes (3) Diabetes mellitus Status: Chronic Current Visit: Yes Qualifiers: Diabetes mellitus type: type 2 (4) Hypertension Status: Acute Assessment and plan: Hold JUANY inhibitor Current Visit: Yes
[2017-01-17] MEDS: CHOLECALCIFEROL 1,000 UNIT TABLET PO SCH (09:09)
[2017-01-17] MEDS: cloNIDine 0.1 MG TABLET PO SCH (09:09)
[2017-01-17] MEDS: ASPIRIN EC 81 MG TABLET PO SCH (09:09)
[2017-01-17] MEDS: FERROUS SULFATE 325 MG TABLET PO SCH (09:09)
[2017-01-17] MEDS: PANTOPRAZOLE 40 MG TABLET PO SCH (09:10)
[2017-01-17] MEDS: METOPROLOL TARTRATE 25 MG TABLET PO SCH (09:10)
--- NOTE | 2017-01-17 09:44 | Discharge Summary ---
Hospital Course - Hospital Course Hospital Course: 76-year-old female with chronic underlying renal disease who presented with severe volume contraction reflecting the use of double diuretics and Invokana. In addition she was chronically on an ARB agent and potassium supplement treat during further rise in her serum creatinine and BUN. With metabolic acidosis she showed hyperkalemia. She was admitted with electrolyte management volume repletion and medication adjustment. At the time of her discharge her creatinine fallen to 2.1 which is baseline. Her electrolyte panel was stable. She has been approved for stay in rehab. Diagnosis - Discharge Diagnosis (1) Diabetes mellitus Status: Chronic (2) Acute on chronic kidney failure Status: Acute Discharge Plan - Discharge Data Disposition: Disch/Xfer-Ip Rehab Fac Condition at Discharge: Stable Discharge Diet: diabetic diet Activity: as per physical therapy - Discharge Medications New Metoprolol Tartrate Tab [Lopressor Tab] 12.5 mg PO BID tablet Continue Insulin Glargine [Lantus] 66 units SUBCUT BEDTIME Furosemide Tab [Lasix Tab] 40 mg PO QAM hydrALAZINE TAB [Apresoline Tab] 100 mg PO BID Lovastatin 40 mg PO BEDTIME Aspirin EC Tab 81 mg PO QAM cloNIDine HCl [Clonidine HCl] 0.2 mg PO BID Cholecalciferol (Vitamin D3) [Vitamin D3] 2,000 unit PO QAM Losartan Potassium 100 mg PO QAM Discontinued Potassium Chloride Cap/Tab [K Dur] 20 meq PO QAM Canagliflozin [Invokana] 300 mg PO QAM Ferrous Sulfate Tab [Feosol Original Tab] 325 mg PO QAM glipiZIDE [Glipizide] 10 mg PO BID sitaGLIPtin [Januvia] 100 mg PO QAM Bisoprol/Hydrochlorothiazide [Bisoprolol-Hctz 10-6.25 mg Tab] 1 each PO QAM - Follow Up or Referral - Forms/Instructions Exam - Constitutional Vitals: Period Temp Pulse Resp BP Sys/Cullen Pulse Ox Last 24 Hr 97.4 F-98 F 65-85 18-20 147-187/66-81 94-96 Discharge Results Procedures and tests throughout hospitalization: Pending Orders 01/18/17 04:00 BMP [Basic Metabolic Panel] IN AM Labs on day of discharge: Labs from last 24 hours 01/17/17 01/17/17 01/16/17 07:56 03:48 19:18 Sodium 141 Potassium 4.9 Chloride 113 H Carbon Dioxide 21 Anion Gap 11.9 BUN 37 H Creatinine 2.10 H GFR Calculation 30 BUN/Creatinine Ratio 17.00 Glucose 150 H POC Glucose 138 H 235 H Calculated Osmolality 292.3 Calcium 8.9 01/16/17 01/16/17 15:47 12:06 Sodium Potassium Chloride Carbon Dioxide Anion Gap BUN Creatinine GFR Calculation BUN/Creatinine Ratio Glucose POC Glucose 249 H 168 H Calculated Osmolality Calcium DS: Provider Date of admission: 01/13/17 10:53 Primary care physician: . No PCP Attending physician on admission: Nelida Gallo MD Consults: 01/13/17 13:29 Consult to Pharmacy [CONS] Routine Reason for Pharmacy Consult: Adjust Meds Renal Funct 01/13/17 13:56 Consult to Physician [CONS] Routine Comment: LISBETH, hyperkalemia Consulting Provider: Moses Foote Person Notified: devan Date Notified: 01/14/17 Time Notified: 10:58 Consult Notification Comment: will let dr wets know. 01/13/17 15:53 Consult to [facility], Educator [CONS] Routine Reason for Green Prize Packer: Evaluate and Recommend 01/14/17 09:25 Consult to Case Mgmt/Social Srvs [CONS] Routine Reason for Case Mgmt/Social Srvs: Swingbed/SNF/Custodial Consult to Occupational Therapy [CONS] Routine Reason for Occupational Therapy: Evaluate and Treat Consult to Physical Therapy [CONS] Routine Reason for Physical Therapy: Evaluate and Treat Discharging clinician: Greg Lopes MD Expected date of discharge: 01/17/17
[2017-01-17 14:20] VITALS: BP 157/91
== END 2017-01-17 13:35 | disposition swing bed (61) | DRG 683 ==
LOC: EDBD → EDUNIT# → N.ED 08:51 → SUATTDRO 10:53 → N.EDINP 10:53 → N.CC 13:09 → N.4E 01-15 13:22
PROVIDERS: ADMIT Family Medicine; ATTEND Internal Medicine Cardiovascular Disease